=== PATIENT | male | born 1965 | race Caucasian/White ===

== ENCOUNTER 2018-01-20 08:18 | Emergency (ER) | payer OTHER ==
[~2018-01-20] VITALS: Ht 172.7 cm; Wt 105.2 kg
[~2018-01-20 08:18] MED LIST: ASPI325 PO; ATOR80 PO; CLOP75 PO; ERGO50000 PO; HYDACE10B PO; META800 PO; METO50 PO; NAPR500 PO; NITR.4SL SL; Naprosyn500 MG PO; OMEP20ER PO; RINGWORM14.2 GM TP
[2018-01-20] MEDS ORDERED: Bactrim Ds Tab1 EACH PO (08:36)
[2018-01-20] MEDS ORDERED: Norco 10-325 T1 EACH PO (09:28)
[2018-01-20] MEDS ORDERED: MUPI1NAS (09:28)
[2018-01-20] MEDS ORDERED: Cleocin HCl300 MG PO (09:28)
== END 2018-01-20 09:47 | disposition home or self-care (01) ==
LOC: ER 08:18
DX: L02.414 Cutaneous abscess of left upper limb (principal); Z79.899 Other long term (current) drug therapy; Z79.82 Long term (current) use of aspirin; I25.2 Old myocardial infarction; F17.210 Nicotine dependence, cigarettes, uncomplicated
CPT/HCPCS: 10060; 99283-25

== ENCOUNTER → 2019-04-15 | Outpatient (CLI) | payer OTHER ==
[~2019-04-15] MED LIST changes: +Bactrim Ds Tab1 EACH PO; +Cleocin HCl300 MG PO; +MUPI1NAS; +Norco 10-325 T1 EACH PO
[2019-04-15 14:02] LABS: Stool Occult Bld Immuno 1 Negative (NEGATIVE)
== END ==
LOC: LAB SHORT 11:10 → LAB 11:10
PROVIDERS: Family Medicine
DX: Z12.11 Encounter for screening for malignant neoplasm of colon (principal)
CPT/HCPCS: 82274

== ENCOUNTER → 2019-10-27 | Outpatient (CLI) | payer OTHER | END | disposition home or self-care (01) | LOC: LAB 17:13 → LAB SHORT 17:13 | DX: L02.414 Cutaneous abscess of left upper limb (principal) | CPT/HCPCS: 87070; 87075; 87077; 87186; 87205 ==

== ENCOUNTER 2024-02-22 07:18 | Day surgery (SDC) | payer OTHER ==
[~2024-02-22] VITALS: Ht 170.2 cm; Wt 104.5 kg
[~2024-02-22 07:18] MED LIST changes: +BACTRIM DS TAB1 EAC1 PO; +Balanced Salt Epinephrine Irrigation Solution 500 mL IR SCH; +CEPH500 PO; +Lidocaine HCl/Pf 1% 5 ML VIAL XX SCH; +Moxifloxacin HCL 0.5 MG/0.1 ML 0.4MLSYR RIGHTEYE SCH; +NS 500 ML IV ONE; +PHENYLEPHRINE\\TROPICAMIDE\\TETRACAINE OPHTHALMIC DILATING SOLN RIGHTEYE PRN; +Povidone-Iodine 450 DROP/30 ML Solution ONE; +Povidone-Iodine 450 DROP/30 ML Solution RIGHTEYE SCH; +Tetracaine HCl/Pf 0.5% Opth Soln 4 ml ONE
[2024-02-22] MEDS ORDERED: ASPIR 8181 M1 PO (08:21)
[2024-02-22] MEDS ORDERED: METF500 PO (08:26)
[2024-02-22] MEDS ORDERED: METFORMIN HCL500 M3 PO (08:26)
--- NOTE | 2024-02-22 08:32 | NUR ---
02/22/24 0832 Nichelle Fernandez PULSE OXIMETER READING PULSE OF 33, THREE LEAD EKG SHOWS HR OF 60, PATIENT REPORTS HE HAS NEVER BEEN TOLD HE HAS AN IRREGULAR HEART BEAT. THREE LEAD SHOWN TO DR VIVAR, PER DR VIVAR OK TO PROCEED. PATIENT DENIES CHEST PAIN, SOB, LIGHTHEADEDNESS.
[2024-02-22] MEDS ORDERED: NS 500 ML IV ONE (08:33)
[2024-02-22] MEDS ORDERED: Midazolam HCl 1MG / ML 2ML Vial ONE (09:10)
[2024-02-22 10:12] VITALS: BP 144/101
--- NOTE | 2024-02-22 10:14 | NUR ---
02/22/24 1014 ROCIO PADRON PT TO FU WITH PCP FOR HEART RATE/WILL SEND DR. BADILLO COPY OF 12LEAD AND RHYTHM. ALSO, PT TO BE GIVEN A COPY. DR [place] SPOKE WITH PT ABOUT SITTING UP TOO FAST. IF FEELS DIZZY TO SIT DOWN IMMEDIATELY. PT STATES THAT IT IS RARE THAT HE BECOMES DIZZY. DR MONTANA FEELS COMFORTABLE WITH PT GOING HOME.
== END 2024-02-22 10:30 | disposition home or self-care (01) ==
LOC: ORSCSDS 07:18
PROVIDERS: Student in an Organized Health Care Education/Training Program
PROC: 08RJ3JZ Replacement of Right Lens with Synthetic Substitute, Percutaneous Approach (ICD-10-PCS; principal; 2024-02-22 09:00)
DX: E11.36 Type 2 diabetes mellitus with diabetic cataract (principal); H25.813 Combined forms of age-related cataract, bilateral; I25.2 Old myocardial infarction; I10 Essential (primary) hypertension; I25.10 Atherosclerotic heart disease of native coronary artery without angina pectoris; F17.210 Nicotine dependence, cigarettes, uncomplicated; Z79.82 Long term (current) use of aspirin; Z79.84 Long term (current) use of oral hypoglycemic drugs; Z79.899 Other long term (current) drug therapy
CPT/HCPCS: 82947; 93005; 93010; J2250; J7040; V2632

== ENCOUNTER 2024-03-01 10:17 | Day surgery (SDC) | payer OTHER ==
[~2024-03-01] VITALS: Ht 177.8 cm; Wt 105.4 kg
[~2024-03-01 10:17] MED LIST changes: +ASPIR 8181 M1 PO; +METF500 PO; +METFORMIN HCL500 M3 PO; +Moxifloxacin HCL 0.5 MG/0.1 ML 0.4MLSYR LEFTEYE SCH; -Moxifloxacin HCL 0.5 MG/0.1 ML 0.4MLSYR RIGHTEYE SCH; +PHENYLEPHRINE\\TROPICAMIDE\\TETRACAINE OPHTHALMIC DILATING SOLN LEFTEYE PRN; -PHENYLEPHRINE\\TROPICAMIDE\\TETRACAINE OPHTHALMIC DILATING SOLN RIGHTEYE PRN; +Povidone-Iodine 450 DROP/30 ML Solution LEFTEYE SCH; -Povidone-Iodine 450 DROP/30 ML Solution RIGHTEYE SCH
[2024-03-01] MEDS ORDERED: Midazolam HCl 1MG / ML 2ML Vial ONE (10:29)
[2024-03-01] MEDS ORDERED: FentaNYL Citrate 50 MCG/ML 2 ML Injection ONE (10:29)
[2024-03-01] MEDS ORDERED: NS 500 ML IV ONE (10:50)
[2024-03-01 12:05] VITALS: BP 159/107
== END 2024-03-01 12:19 | disposition home or self-care (01) ==
LOC: ORSCSDS 10:17
PROVIDERS: Student in an Organized Health Care Education/Training Program
PROC: 08RK3JZ Replacement of Left Lens with Synthetic Substitute, Percutaneous Approach (ICD-10-PCS; principal; 2024-03-01 11:30)
DX: E11.36 Type 2 diabetes mellitus with diabetic cataract (principal); H25.812 Combined forms of age-related cataract, left eye; Z96.1 Presence of intraocular lens; I10 Essential (primary) hypertension; I25.10 Atherosclerotic heart disease of native coronary artery without angina pectoris; I25.2 Old myocardial infarction; Z79.82 Long term (current) use of aspirin; Z79.899 Other long term (current) drug therapy
CPT/HCPCS: 82947; J2250; J3010; J7040; V2632

== ENCOUNTER → 2024-07-16 | Outpatient (CLI) | payer OTHER ==
[~2024-07-16] MED LIST changes: -Balanced Salt Epinephrine Irrigation Solution 500 mL IR SCH; -Lidocaine HCl/Pf 1% 5 ML VIAL XX SCH; -Moxifloxacin HCL 0.5 MG/0.1 ML 0.4MLSYR LEFTEYE SCH; -NS 500 ML IV ONE; -PHENYLEPHRINE\\TROPICAMIDE\\TETRACAINE OPHTHALMIC DILATING SOLN LEFTEYE PRN; -Povidone-Iodine 450 DROP/30 ML Solution LEFTEYE SCH; -Povidone-Iodine 450 DROP/30 ML Solution ONE; -Tetracaine HCl/Pf 0.5% Opth Soln 4 ml ONE
[2024-07-16 13:54] LABS: BASOPHILS ABSOLUTE AUTO 0.04 K/mm3 (0.00-0.23); BASOPHILS PERCENT AUTO 1 % (0-2); EOSINOPHILS ABSOLUTE AUTO 0.02 K/mm3 (0.00-0.68); EOSINOPHILS PERCENT AUTO 1 % (0-6); Hematocrit 43.5 % (37.0-53.0); Hemoglobin 14.4 g/dL (13.5-17.5); IMMATURE GRAN ABSOLUTE AUTO 0.01 K/mm3 (0.00-0.10); IMMATURE GRAN PERCENT AUTO 0 % (0-1); LYMPHOCYTES ABSOLUTE AUTO 0.56 K/mm3 (0.84-5.20); LYMPHOCYTES PERCENT AUTO 16 % (21-46); MONOCYTES ABSOLUTE AUTO 0.44 K/mm3 (0.16-1.47); MONOCYTES PERCENT AUTO 13 % (4-13); Mean Corpuscular HGB 29.7 pg (26.0-34.0); Mean Corpuscular HGB Conc 33.1 g/dL (31.5-36.5); Mean Corpuscular Volume 90 fL (80-100); NEUTROPHILS ABSOLUTE AUTO 2.46 K/mm3 (1.96-9.15); NEUTROPHILS PERCENT AUTO 70 % (41-73); Platelet Count 146 K/mm3 (150-400); RDW Coefficient Variation 13.9 % (11.7-14.2); RDW Standard Deviation 45.5 fL (35.1-46.3); Red Blood Cell Count 4.85 M/mm3 (4.30-5.90); White Blood Cell Count 3.53 K/mm3 (4.00-11.30)
[2024-07-16 14:05] LABS: Albumin, Blood 3.8 g/dL (3.4-5.0); Albumin/Globulin Ratio 1.1 (0.8-1.8); Bun/Creatinine Ratio 11.9 (12.0-20.0); Creatinine, Blood 1.34 mg/dL (0.60-1.20); Globulin, Blood 3.4 g/dL (2.2-4.0); Potassium, Blood 4.3 mmol/L (3.5-5.5); Total Protein, Blood 7.2 g/dL (6.4-8.2)
== END | disposition home or self-care (01) ==
LOC: LAB SHORT 13:50
PROVIDERS: Physician Assistant
DX: J18.9 Pneumonia, unspecified organism (principal)
CPT/HCPCS: 80053; 85025

== ENCOUNTER → 2024-12-18 | Outpatient (CLI) | payer OTHER ==
[2024-12-18 16:36] LABS: BASOPHILS ABSOLUTE AUTO 0.07 K/mm3 (0.00-0.23); BASOPHILS PERCENT AUTO 1 % (0-2); EOSINOPHILS ABSOLUTE AUTO 0.11 K/mm3 (0.00-0.68); EOSINOPHILS PERCENT AUTO 2 % (0-6); Hematocrit 45.8 % (37.0-53.0); Hemoglobin 15.0 g/dL (13.5-17.5); IMMATURE GRAN ABSOLUTE AUTO 0.04 K/mm3 (0.00-0.10); IMMATURE GRAN PERCENT AUTO 1 % (0-1); LYMPHOCYTES ABSOLUTE AUTO 1.39 K/mm3 (0.84-5.20); LYMPHOCYTES PERCENT AUTO 27 % (21-46); MONOCYTES ABSOLUTE AUTO 0.38 K/mm3 (0.16-1.47); MONOCYTES PERCENT AUTO 7 % (4-13); Mean Corpuscular HGB Conc 32.8 g/dL (31.5-36.5); Mean Corpuscular Volume 89 fL (80-100); NEUTROPHILS ABSOLUTE AUTO 3.19 K/mm3 (1.96-9.15); NEUTROPHILS PERCENT AUTO 62 % (41-73); NRBC ABSOLUTE 0.00 K/mm3 (0.00-0.02); NRBC Auto 0.0 /100 WBC (0.0-0.2); RDW Coefficient Variation 13.3 % (11.7-14.2); RDW Standard Deviation 43.6 fL (35.1-46.3)
[2024-12-18 17:45] LABS: Alanine Aminotransfer (ALT/SGP 54.0 U/L (12-78); Albumin, Blood 3.7 g/dL (3.4-5.0); Albumin/Globulin Ratio 1.0 (0.8-1.8); Anion Gap 7.0 mmol/L (3-11); Aspartate Aminotrans (AST/SGOT 27.0 U/L (12-37); Bilirubin, Total 0.6 mg/dL (0.1-1.0); Blood Urea Nitrogen 12.0 mg/dL (8-24); CO2, Blood 29.0 mmol/L (21-32); Calcium, Blood 9.2 mg/dL (8.5-10.1); Chloride, Blood 104.0 mmol/L (98-108); Creatinine, Blood 1.03 mg/dL (0.60-1.20); Globulin, Blood 3.6 g/dL (2.2-4.0); Glucose, Blood 106.0 mg/dL (70-99); Potassium, Blood 4.2 mmol/L (3.5-5.5); Sodium, Blood 136.0 mmol/L (136-145); Total Protein, Blood 7.3 g/dL (6.4-8.2)
[2024-12-20 22:28] LABS: QUANTIFERON MITOGEN MINUS NIL 9.97 IU/mL; QUANTIFERON NIL 0.03 IU/mL; QUANTIFERON PLUS TB1 MINUS NIL 0.01 IU/mL (<=0.34); QUANTIFERON PLUS TB2 MINUS NIL 0.00 IU/mL (<=0.34)
== END ==
LOC: LAB 11:20 → LAB SHORT 11:20
PROVIDERS: Student in an Organized Health Care Education/Training Program
DX: L40.0 Psoriasis vulgaris (principal)
CPT/HCPCS: 80053; 85025; 86480